=== PATIENT | male | born 1940 | race Caucasian/White ===

== ENCOUNTER → 2018-10-01 | Outpatient (CLI) | payer OTHER ==
[~2018-10-01] MED LIST: CIPRO750 MG PO; CLONAZEPAM1 MG PO; COZAAR25 MG; DOCUSATE SODIU100 MG PO; NABUMETONE500 MG PO; NEURONTIN PO; PERCOCET 5/3251 TAB PO; ROGAINE60 GM
== END | disposition home or self-care (01) ==
LOC: RAD 12:20
DX: M17.11 Unilateral primary osteoarthritis, right knee (principal)

== ENCOUNTER 2022-01-11 12:43 | Emergency (ER) | payer OTHER ==
[~2022-01-11] VITALS: Ht 180.3 cm; Wt 85.7 kg
[2022-01-11] MEDS ORDERED: SIMVASTATIN20 MG PO (13:33)
[2022-01-11] MEDS ORDERED: FINASTERIDE5 MG PO (13:34)
== END 2022-01-11 17:23 | disposition home or self-care (01) ==
LOC: ER 12:43
DX: N40.1 Benign prostatic hyperplasia with lower urinary tract symptoms (principal); I10 Essential (primary) hypertension; E78.00 Pure hypercholesterolemia, unspecified; Z88.0 Allergy status to penicillin; N39.0 Urinary tract infection, site not specified

== ENCOUNTER 2022-06-24 14:39 | Outpatient (CLI) | payer OTHER ==
[~2022-06-24 14:39] MED LIST changes: +FINASTERIDE5 MG PO; +SIMVASTATIN20 MG PO
== END 2022-06-24 14:42 | disposition home or self-care (01) ==
LOC: RAD 14:39
DX: M10.9 Gout, unspecified (principal); M17.9 Osteoarthritis of knee, unspecified

== ENCOUNTER 2024-05-11 07:31 | Emergency (ER) | payer OTHER ==
[~2024-05-11] VITALS: Ht 180.3 cm; Wt 81.6 kg
[2024-05-11] MEDS ORDERED: KETOROLAC TROMETHAMINE 60 MG VIAL IM ONE ×2 (09:45→10:11)
[2024-05-11] MEDS ORDERED: KETO10TA2 PO (10:34)
== END 2024-05-11 11:16 | disposition home or self-care (01) ==
LOC: ER 07:33
DX: M25.539 Pain in unspecified wrist (principal); M79.632 Pain in left forearm; W19.XXXA Unspecified fall, initial encounter; I10 Essential (primary) hypertension; Z88.0 Allergy status to penicillin
CPT/HCPCS: 73090; 73110; 73130; 96372; 99283; J1885

== ENCOUNTER 2024-05-20 12:00 | Emergency (ER) | payer OTHER ==
[~2024-05-20] VITALS: Ht 180.3 cm; Wt 83.9 kg
[~2024-05-20 12:00] MED LIST changes: +KETO10TA2 PO
== END 2024-05-20 17:47 | disposition home or self-care (01) ==
LOC: ER 12:02
DX: S62.115A Nondisplaced fracture of triquetrum [cuneiform] bone, left wrist, initial encounter for closed fracture (principal); W18.39XA Other fall on same level, initial encounter; Y93.89 Activity, other specified; Y92.89 Other specified places as the place of occurrence of the external cause; Z88.0 Allergy status to penicillin; E78.00 Pure hypercholesterolemia, unspecified; I10 Essential (primary) hypertension

== ENCOUNTER 2024-06-22 08:55 | Emergency (ER) | payer OTHER ==
[~2024-06-22] VITALS: Ht 180.3 cm; Wt 61.2 kg
[2024-06-22] MEDS ORDERED: ELIQUIS2.5 MG (08:59)
[2024-06-22] MEDS ORDERED: TOPROL XL50 M1 (09:00)
[2024-06-22 09:04] VITALS: BP 108/52; O2SAT 97
[2024-06-22 09:34] LABS: HEMATOCRIT 36.3 % (39.0-48.0); HEMOGLOBIN 12.5 g/dL (13-16.00); MEAN CELL VOLUME 96.5 fL (80.0-100.00); MEAN CORPUSCULAR HEMOGLOBIN 33.2 pg (27.00-32.0); MEAN CORPUSCULAR HGB CONC 34.4 g/dl (32.0-36.0); PLATELET COUNT 262 K/uL (150-450); RED BLOOD COUNT 3.77 M/uL (4.00-6.00); RED CELL DISTRIBUTION WIDTH 13.6 % (11.5-14.5)
[2024-06-22 09:57] LABS: CALCIUM 9.3 mg/dL (8.5-10.1); CREATININE SERUM 1.04 mg/dL (0.70-1.30); GFR 67.87
== END 2024-06-22 13:11 | disposition home or self-care (01) ==
LOC: ER 08:56
PROVIDERS: General Practice
DX: R42 Dizziness and giddiness (principal); Z88.0 Allergy status to penicillin

== ENCOUNTER 2024-09-21 11:15 | Outpatient (CLI) | payer OTHER ==
[~2024-09-21 11:15] MED LIST changes: +ELIQUIS2.5 MG; +TOPROL XL50 M1
== END 2024-09-21 11:22 | disposition home or self-care (01) ==
LOC: RAD 11:15
PROVIDERS: ATTEND Physical Medicine & Rehabilitation
DX: M25.561 Pain in right knee (principal)

== ENCOUNTER → 2025-01-14 | Emergency (ER) | payer OTHER | END | disposition left against medical advice (07) | LOC: ER 13:25 | DX: Z53.21 Procedure and treatment not carried out due to patient leaving prior to being seen by health care provider (principal) ==

== ENCOUNTER → 2025-02-18 | Emergency (ER) | payer OTHER ==
[~2025-02-18] VITALS: Ht 180.3 cm; Wt 816.9 kg
[~2025-02-18] MED LIST changes: +BUDESONIDE0.5 MG/2 M IH; +GUAIFENESIN/DEXTROMETHORPHAN 100MG/10ML BLIST.PACK PO ONE; +IPRATROPIU0.2 MG/1 M IH; +IPRATROPIUM BROMIDE 0.5 MG/2.5 ML AMPUL.NEB IH ONE; +LEVALBUTER0.63 MG/3 IH; +LEVALBUTEROL HCL 1.25 MG/3 ML SOLUTION IH ONE; +MUCINEX FAST-M180 M2 PO; +SIMVASTATIN80 MG; +ZITHROMAX500 MG PO
[2025-02-18 16:13] LABS: BASO % 0.2 % (0.1-1.2); EOS # 0.03 (0.04-0.54); EOS % 0.4 % (0.7-7.0); HEMOGLOBIN 13.9 g/dL (13.7-17.5); LYMPH % 10.9 % (19.3-53.1); MEAN CORPUSCULAR HEMOGLOBIN 31.3 pg (25.6-32.2); MONO # 0.74 (0.24-0.82); NEUT # 6.51 (1.56-6.13); PLATELET COUNT 258 K/uL (163-369); RED BLOOD COUNT 4.44 M/uL (4.63-6.08); RED CELL DISTRIBUTION WIDTH 12.8 % (11.6-14.4)
[2025-02-18 16:44] LABS: ALBUMIN 3.9 gm/dL (3.4-5.0); BILIRUBIN TOTAL 0.68 mg/dL (0.3-1.2); CALCIUM 9.4 mg/dL (8.5-10.1); CREATININE SERUM 1.01 mg/dL (0.70-1.30); GFR 70.04; GLOBULINA 3.1 G/DL (2.4-3.5); POTASSIUM 5.13 mEq/L (3.5-5.1)
[2025-02-18 17:21] LABS: URINE APPEARANCE Clear; URINE BILIRRUBIN Small (NEGATIVE); URINE BLOOD Negative; URINE COLOR Dark Yellow; URINE GLUCOSE Negative (NEGATIVE); URINE LEUKOCYTE Trace; URINE NITRATE Negative; URINE PROTEIN 30 (NEGATIVE)
[2025-02-18 17:25] LABS: URINE BACTERIA 52.6 uL (0.0-1933); URINE EPITHELIAL CELLS 20.4 uL (0.0-38.8); URINE RBC 124.9 uL (0.0-20.8); URINE WBC 18.8 uL (0.0-23.2)
[2025-02-18 17:27] LABS: URINE CAST 1.03 uL (0.0-1.40); URINE KETONE 40 (NEGATIVE)
[2025-02-18 17:36] LABS: COVID-19 AG NEGATIVE (NEGATIVE); INFLUENZA A AG NEGATIVE (NEGATIVE); INFLUENZA B AG NEGATIVE (NEGATIVE)
[2025-02-18 17:40] LABS: URINE MUCUS SCANT
[2025-02-18 17:41] LABS: TYPE CELLS SQUAMOUS
== END | disposition home or self-care (01) ==
LOC: ER 14:20
PROVIDERS: General Practice
DX: J06.9 Acute upper respiratory infection, unspecified (principal); J00 Acute nasopharyngitis [common cold]; R35.0 Frequency of micturition; Z88.0 Allergy status to penicillin; Z20.822 Contact with and (suspected) exposure to COVID-19; I10 Essential (primary) hypertension; I49.8 Other specified cardiac arrhythmias; E78.49 Other hyperlipidemia

== ENCOUNTER 2025-05-08 15:39 | Emergency (ER) | payer OTHER ==
[~2025-05-08] VITALS: Ht 177.8 cm; Wt 83.9 kg
[~2025-05-08 15:39] MED LIST changes: -GUAIFENESIN/DEXTROMETHORPHAN 100MG/10ML BLIST.PACK PO ONE; -IPRATROPIUM BROMIDE 0.5 MG/2.5 ML AMPUL.NEB IH ONE; -LEVALBUTEROL HCL 1.25 MG/3 ML SOLUTION IH ONE
[2025-05-08] MEDS ORDERED: PROSCAR5 MG PO (16:09)
== END 2025-05-08 18:17 | disposition home or self-care (01) ==
LOC: ER 15:39
DX: R42 Dizziness and giddiness (principal); Z88.0 Allergy status to penicillin

== ENCOUNTER 2025-08-27 08:33 | Emergency (ER) | payer OTHER ==
[~2025-08-27] VITALS: Ht 180.3 cm; Wt 83.9 kg
[~2025-08-27 08:33] MED LIST changes: +PROSCAR5 MG PO
[2025-08-27] MEDS ORDERED: MULTI VITAMIN1 EACH (09:27)
[2025-08-27 09:56] LABS: BASO % 0.5 % (0.1-1.2); EOS # 0.42 (0.04-0.54); EOS % 3.5 % (0.7-7.0); LYMPH # 2.27 (1.18-3.74); LYMPH % 19.0 % (19.3-53.1); MEAN PLATELET VOLUME 9.50 fl (9.4-12.4); MONO # 1.03 (0.24-0.82); MONO % 8.6 % (4.7-12.5); NEUT # 8.15 (1.56-6.13); NEUT % 68.1 % (34.0-71.1); RED CELL DISTRIBUTION WIDTH 13.2 % (11.6-14.4)
[2025-08-27 10:27] LABS: ALT/SGPT 21.0 U/L (12-78); AST/SGOT 18.0 U/L (15-37); BILIRUBIN TOTAL 0.73 mg/dL (0.3-1.2); BUN CREA RATIO 14.0 (7.0-25.0); CREATININE SERUM 0.96 mg/dL (0.70-1.30); GFR 74.27; GLOBULINA 3.5 G/DL (2.4-3.5); GLUCOSE FASTING 113.0 mg/dL (65-100); OSMOLALITY SERUM 284.0 MOSM/KG (275-295)
[2025-08-27 11:58] LABS: COVID-19 AG NEGATIVE (NEGATIVE)
[2025-08-27] MEDS ORDERED: ACETAMINOPHEN500 M1 PO (13:00)
[2025-08-27] MEDS ORDERED: ZITHROMAX TRI-500 MG PO (13:00)
[2025-08-27] MEDS ORDERED: GILTUSS COUGH-118 M1 PO (13:00)
== END 2025-08-27 14:03 | disposition home or self-care (01) ==
LOC: ER 08:34
PROVIDERS: Preventive Medicine Public Health & General Preventive Medicine
DX: J98.8 Other specified respiratory disorders (principal); Z88.0 Allergy status to penicillin; I48.91 Unspecified atrial fibrillation; Z20.822 Contact with and (suspected) exposure to COVID-19